=== PATIENT | female | born 1995 | race Caucasian/White ===

== ENCOUNTER 2017-07-23 21:52 | Emergency (ER) | payer OTHER ==
[~2017-07-23] VITALS: Ht 170.2 cm; Wt 69.0 kg
[2017-07-23 21:55] VITALS: Ht 170.2 cm; Wt 69.0 kg
[2017-07-23] MEDS ORDERED: ONDANSETRON INJ 2 MG/ML 2 ML VIAL IV STA (22:13)
[2017-07-23] MEDS ORDERED: SODIUM CHLORIDE 0.9% 1000ML 1,000 ML IV ONE (22:15)
[2017-07-23] MEDS: MoRPHine SULFATE 4 MG/ML 1 ML CARP\\VIAL IV PRN ×2 (22:22→23:18)
[2017-07-23 22:27] LABS: BASO % 0.4 %; BASO ABS # 0.04 K/uL (0-0.2); COMPLETE YES; EOS % 2.1 %; HEMATOCRIT 34.2 % (37-47); IG% 0.2 %; LYMPH % 25.7 %; LYMPH ABS # 2.58 K/uL (1.2-3.4); MEAN CELL VOLUME 91.4 fL (80-100); MEAN CORPUSCULAR HEMOGLOBIN 31.8 pg (25-34); MEAN CORPUSCULAR HGB CONC 34.8 g/dl (32-36); MEAN PLATELET VOLUME 10.6 fL (7.4-10.4); MONO % 6.2 %; NEUT % 65.4 %; PLATELET COUNT 261 K/uL (130-400); RED BLOOD COUNT 3.74 M/uL (4.2-5.4); WHITE BLOOD COUNT 10.04 K/uL (4.8-10.8)
[2017-07-23] MEDS ORDERED: MULT-580 PO (22:37)
[2017-07-23] MEDS ORDERED: HYDR-5688 PO (22:37)
[2017-07-23] MEDS ORDERED: SULF800T23 PO (22:37)
[2017-07-23 22:45] LABS: URINE APPEARANCE CLEAR (CLEAR); URINE BILIRUBIN NEG (NEG); URINE COLOR YELLOW; URINE NITRITE NEG (NEG); URINE SPECIFIC GRAVITY 1.022 (1.000-1.030); UROBILINOGEN POS (NEG); ZZUR CULT IF INDIC CLEAN CATCH NO
[2017-07-23 22:48] LABS: MANUAL MICROSCOPIC REQUIRED? NO; REVIEW REQ? NO
[2017-07-23 22:53] LABS: BUN/CREATININE RATIO 16.2 (10-20); CALCIUM 8.9 mg/dl (8.5-10.1); CREATININE 0.92 mg/dl (0.60-1.20); POTASSIUM 3.5 mmol/L (3.5-5.1)
[2017-07-23 22:56] LABS: ALB/GLOB RATIO 0.9 (0.9-2)
[2017-07-23 23:22] LABS: BENZODIAZEPINE, URINE NEG (NEG); COCAINE,URINE NEG (NEG); PHENCYCLIDINE, URINE NEG (NEG)
[2017-07-24 01:23] VITALS: TEMP 36.8
[2017-07-24 01:46] VITALS: BP 102/68; PULSE 78; O2SAT 98
--- NOTE | 2017-07-24 02:28 | EMERGENCY ROOM VISIT NOTE ---
History First contact with patient: 21:58 Chief Complaint: ABDOMINAL PAIN Stated Complaint: RT SIDE PAIN Nursing Triage Summary: Christianne c/o right mid abdominal pain, seen yesterday in ER states she has a left ovarian cyst. Pain worse . History of Present Illness The patient is a 22 year old female who presents to the Emergency Room with complaints of right-sided mid abdominal pain that began yesterday. The patient lives in [place], and was seen at an emergency department there. Evidently blood work, ultrasound, and noncontrast CT showed an ovarian cyst. The patient states that she traveled to [place] today to be with family, and her pain is now worsening. She is status post cholecystectomy several years ago. She has not had fever, chills, chest pain, chest tightness, or shortness of breath. No vaginal drainage or discharge. She denies chance of . The patient rates her discomfort a 10/10. She has been taking Vicodin that was given to her yesterday, but states this is no longer helping her symptoms. Review of Systems More than 10 systems were reviewed and otherwise negative with the exception of history of present illness. Past Medical/Surgical History Medical Problems: (1) Asthma Family History No pertinent family history Social History Smoking Status: Former Smoker Housing Status: lives with family Current/Historical Medications Scheduled Multiple Vitamins W/ Minerals (Hair/Skin/Nails), 1 TAB PO DAILY Sulfa/Trimethoprim (Bactrim Ds 800MG/160MG), 1 TAB PO BID Scheduled PRN Hydrocodone/Acetaminophen 5MG/325MG ([place] 5MG/325MG), 1 TABLET PO Q6 PRN for Pain Physical Exam Vital Signs Date Time Temp Pulse Resp B/P (MAP) Pulse Ox O2 Delivery O2 Flow Rate FiO2 07/24/17 01:46 78 16 102/68 98 07/24/17 01:23 36.8 83 18 99/62 99 Room Air 07/23/17 23:09 91 16 119/80 100 Room Air 07/23/17 21:55 36.4 97 20 137/85 100 Room Air Physical Exam VITALS: Vitals are noted on the nurse's note and reviewed by myself. Vital signs stable. GENERAL: Well-developed, well-nourished, uncomfortable-appearing female who is cooperative with the examination. HEART: Regular rate and rhythm without murmurs gallops or rubs. LUNGS: Clear to auscultation bilaterally without wheezes, rales or rhonchi. No retractions or accessory muscle use. ABDOMEN: Positive normal bowel sounds x 4. Soft with right-sided abdominal tenderness on palpation just right of the umbilicus. The patient is guarding in this area. She does not have distinct lower abdominal or upper abdominal tenderness. No CVA tenderness. MUSCULOSKELETAL: No muscle atrophy, erythema, or edema noted. Full range of motion without joint tenderness in all extremities. Medical Decision & Procedures ER Provider Diagnostic Interpretation: Preliminary Findings Only See Final Report For Complete Findings CT ABDOMEN & PELVIS With Contrast: Unremarkable appendix. 3.5 cm left ovarian cyst. Trace fluid in pelvis. Cholecystectomy. Preliminary Findings Only See Final Report For Complete Findings US PELVIC/ENDOVAG: Assuming a negative test. Correlate. No complex adnexal lesion or torsion. 2.9 cm left ovarian cyst. Uterus is unremarkable. Trace fluid in the pelvis. Laboratory Results 07/23/17 22:15 Red Blood Count 3.74, Mean Corpuscular Volume 91.4, Mean Corpuscular Hemoglobin 31.8, Mean Corpuscular Hemoglobin Concent 34.8, Mean Platelet Volume 10.6, Neutrophils (%) (Auto) 65.4, Lymphocytes (%) (Auto) 25.7, Monocytes (%) (Auto) 6.2, Eosinophils (%) (Auto) 2.1, Basophils (%) (Auto) 0.4, Neutrophils # (Auto) 6.57, Lymphocytes # (Auto) 2.58, Monocytes # (Auto) 0.62, Eosinophils # (Auto) 0.21, Basophils # (Auto) 0.04 07/23/17 22:15 Test 07/23/17 22:15 07/23/17 22:30 White Blood Count 10.04 K/uL (4.8-10.8) Red Blood Count 3.74 M/uL (4.2-5.4) Hemoglobin 11.9 g/dL (12.0-16.0) Hematocrit 34.2 % (37-47) Mean Corpuscular Volume 91.4 fL (80-100) Mean Corpuscular Hemoglobin 31.8 pg (25-34) Mean Corpuscular Hemoglobin Concent 34.8 g/dl (32-36) Platelet Count 261 K/uL (130-400) Mean Platelet Volume 10.6 fL (7.4-10.4) Neutrophils (%) (Auto) 65.4 % Lymphocytes (%) (Auto) 25.7 % Monocytes (%) (Auto) 6.2 % Eosinophils (%) (Auto) 2.1 % Basophils (%) (Auto) 0.4 % Neutrophils # (Auto) 6.57 K/uL (1.4-6.5) Lymphocytes # (Auto) 2.58 K/uL (1.2-3.4) Monocytes # (Auto) 0.62 K/uL (0.11-0.59) Eosinophils # (Auto) 0.21 K/uL (0-0.5) Basophils # (Auto) 0.04 K/uL (0-0.2) RDW Standard Deviation 41.0 fL (36.4-46.3) RDW Coefficient of Variation 12.2 % (11.5-14.5) Immature Granulocyte % (Auto) 0.2 % Immature Granulocyte # (Auto) 0.02 K/uL (0.00-0.02) Anion Gap 8.0 mmol/L (3-11) Est Creatinine Clear Calc Drug Dose 91.7 ml/min Estimated GFR () 101.0 Estimated GFR (Non- 87.2 BUN/Creatinine Ratio 16.2 (10-20) Calcium Level 8.9 mg/dl (8.5-10.1) Total Bilirubin 0.2 mg/dl (0.2-1) Aspartate Amino Transf (AST/SGOT) 12 U/L (15-37) Alanine Aminotransferase (ALT/SGPT) 19 U/L (12-78) Alkaline Phosphatase 57 U/L (45-117) Total Protein 7.4 gm/dl (6.4-8.2) Albumin 3.5 gm/dl (3.4-5.0) Globulin 3.9 gm/dl (2.5-4.0) Albumin/Globulin Ratio 0.9 (0.9-2) Lipase 72 U/L (73-393) Urine Color YELLOW Urine Appearance CLEAR (CLEAR) Urine pH 8.0 (4.5-7.5) Urine Specific [place] 1.022 (1.000-1.030) Urine Protein NEG (NEG) Urine Glucose (UA) NEG (NEG) Urine Ketones NEG (NEG) Urine Occult Blood NEG (NEG) Urine Nitrite NEG (NEG) Urine Bilirubin NEG (NEG) Urine Urobilinogen POS (NEG) Urine Leukocyte Esterase NEG (NEG) Urine Test NEG (NEG) Urine Opiates Screen POS (NEG) Urine Methadone, Qualitative NEG (NEG) Urine Barbiturates NEG (NEG) Urine Phencyclidine (PCP) Level NEG (NEG) Ur Amphetamine/Methamphetamine NEG (NEG) MDMA (Ecstasy) Screen NEG (NEG) Urine Benzodiazepines Screen NEG (NEG) Urine Cocaine Metabolite NEG (NEG) Urine Marijuana (THC) NEG (NEG) Medications Administered Medications (Trade) Dose Ordered Sig/Jo-Ann Route Start Time Stop Time Status Last Admin Dose Admin Morphine Sulfate (MoRPHine SULFATE INJ) 4 mg Q1H PRN IV 07/23/17 22:15 07/24/17 02:06 DC 07/23/17 23:18 4 MG Sodium Chloride 1,000 ml @ 999 mls/hr Q1H1M ONCE IV 07/23/17 22:15 07/23/17 23:15 DC 07/23/17 22:23 999 MLS/HR Ondansetron HCl (Zofran Inj) 4 mg NOW STAT IV 07/23/17 22:13 07/23/17 22:16 DC 07/23/17 22:22 4 MG ED Course Physical exam and history were performed. Nursing notes, EMR, and Medication List were personally reviewed. Patient appears to have right-sided abdominal pain for the past 2 days. The patient was seen out of state yesterday, and states her pain is worse tonight. IV access was established and labs were obtained. The patient was hydrated with normal saline and given IV morphine and IV Zofran for comfort. Ultrasound and CT scan were performed. The patient's blood work is as above and was reviewed. Patient does not have a significantly elevated white blood cell count, gross anemia, bandemia, or significant electrolyte imbalance. Transaminases are nondiagnostic. Urine was negative for . Urine is also without evidence of infection. Drug of abuse screen was positive for narcotics, however the patient is actively taking Vicodin, and this was expected. Her ultrasound does show a left sided ovarian cyst. CT scan with IV and oral contrast confirms the left-sided cyst, but does not reveal additional intra-abdominal process. On reexamination the patient continued to complain of right-sided abdominal pain. He does not have a fever at this time, and her evaluation to this point is benign. I explained the importance of performing a pelvic exam to further identify etiologies of her pain, however the patient refused pelvic exam. Overall she is stable for discharge home. She does have Vicodin from yesterday that she is to continue using. She is returning home to [place] in 48 hours, and likely needs to follow with [facility] or [facility]. She is to contact them in the morning to help facilitate care. The patient was otherwise invited back to the ER with any new, worsening, or concerning symptoms. The chart was completed utilizing [employer] Speech Voice Recognition Software. Grammatical errors, random word insertions, pronoun errors, and incomplete sentences are an occasional consequence of this system due to software limitations, ambient noise, and hardware issues. Any formal questions or concerns about the content, text, or information contained within the body of this dictation should be directly addressed to the provider for clarification. . Medical Decision Differential diagnosis: Etiologies such as appendicitis, constipation, malingering, diverticulitis, PUD , biliary pathology, UTI, pancreatitis, obstruction, mesenteric ischemia, aortic pathology, infections, inflammatory bowel disease, renal colic, as well as others were entertained. Impression Primary Impression: Right sided abdominal pain Departure Information Dispostion Home / Self-Care Condition GOOD Forms HOME CARE DOCUMENTATION FORM, IMPORTANT VISIT INFORMATION Patient Instructions My [facility] Additional Instructions You were seen and evaluated today on an emergency basis only. This is not a substitute for, or an effort to provide, complete comprehensive medical care. It is not possible to recognize and treat all injuries or illnesses in a single emergency department visit. For this reason it is recommended that you followup with your primary care physician/[facility] upon returning home for recheck of your condition. Take 600 mg ibuprofen (Advil) every 6 hours. Continue your [place] as previously prescribed You are welcome to return to the emergency department anytime with new, worsening, or concerning symptoms.
--- NOTE | 2017-07-24 07:16 | DIAGNOSTIC IMAGING REPORT ---
ABDOMEN AND PELVIS CT WITH IV AND ORAL CONTRAST CT DOSE: 312.66 mGy.cm HISTORY: Right side mid abd pain. No Gallbladder TECHNIQUE: Multiaxial CT images of the abdomen and pelvis were performed following the use of intravenous and oral contrast. A dose lowering technique was utilized adhering to the principles of ALARA. COMPARISON STUDY: None. FINDINGS: The lung bases are clear. No bowel wall thickening or obstruction. The liver, spleen, adrenal glands, pancreas, and kidneys are unremarkable. No hydronephrosis. Normal bladder. The uterus and right ovary are unremarkable. There is a 3.2 cm cyst within the left ovary. Trace pelvic free fluid. No retroperitoneal lymphadenopathy. No bowel wall thickening or obstruction. Normal appendix. IMPRESSION: 1. No bowel wall thickening or obstruction. 2. Normal appendix. 3. Trace pelvic free fluid. 4. A 3.2 cm left ovarian cyst. 5. Cholecystectomy. Electronically signed by: Ugo Wright M.D. 07/24/2017 7:15 AM Dictated Date/Time: 07/24/2017 7:12 AM
--- NOTE | 2017-07-24 07:31 | DIAGNOSTIC IMAGING REPORT ---
PELVIC ULTRASOUND, TRANSABDOMINAL AND TRANSVAGINAL HISTORY: Right-sided pelvic pain. COMPARISON: None. FINDINGS: Uterus: Unremarkable. Endometrial stripe: Right ovary: Normal in size and demonstrates normal color flow. Left ovary: Normal in size and demonstrates normal color flow. A 2.9 cm cyst. This may contain internal echoes or could represent artifact given the suboptimal evaluation due to the position of the ovary. Miscellaneous:Trace pelvic free fluid. IMPRESSION: 1. Trace pelvic free fluid. 2. A 2.9 cm left ovarian cyst which may contain internal echoes. However, this may represent artifact given the suboptimal visualization. Electronically signed by: Ugo Wright M.D. 07/24/2017 7:30 AM Dictated Date/Time: 07/24/2017 7:28 AM
[2017-07-26 16:18] LABS: COD UR NEGATIVE NG/ML (CUTOFF=50); HYDROCOD UR 464 NG/ML (CUTOFF=50); HYDROMOR UR 133 NG/ML (CUTOFF=50); MORPHINE UR 112 NG/ML (CUTOFF=50); NORHYDROCODONE CONF UR 2030 NG/ML (CUTOFF=50); OXYMORPH UR 4990 NG/ML (CUTOFF=50)
== END 2017-07-24 01:48 | disposition home or self-care (01) ==
LOC: C.EDB 21:55
DX: R10.9 Unspecified abdominal pain (principal); J45.909 Unspecified asthma, uncomplicated; Z87.891 Personal history of nicotine dependence

== ENCOUNTER 2021-02-22 20:41 | Inpatient (IN) ==
[2021-02-22] MEDS ORDERED: PENICILLIN G POTASSIUM 3 MU in DEXTROSE 5% 100 ML IV PRN (23:00)
[2021-02-22] MEDS ORDERED: OXYTOCIN 30 UNITS/500 ML BAG IV PRN (23:00)
[2021-02-22] MEDS ORDERED: PENICILLIN G POTASSIUM 6 MU in DEXTROSE 5% 250 ML IV STA (23:05)
[2021-02-22] MEDS: LACTATED RINGER'S 1,000 ML IV PRN (23:06)
[2021-02-22] MEDS ORDERED: ePHEDrine sulfate 50 MG/ML AMP ONE (23:08)
[2021-02-22] MEDS ORDERED: fentaNYL 2MCG/ML ROPIVACAINE 1.25MG/ML 100 ML BAG EPI ONE (23:08)
[2021-02-22] MEDS ORDERED: SODIUM CHLORIDE 0.9% INJ 10 ML VIAL ONE (23:08)
[2021-02-22] MEDS ORDERED: BUPIVACAINE 0.25% 30 ML VIAL ONE (23:08)
[2021-02-22] MEDS ORDERED: fentaNYL citrate 100 MCG/2 ML VIAL ONE (23:08)
[2021-02-22 23:22] LABS: Hematocrit (blood only) 35.5 % (37-47); Hemoglobin 12.2 g/dL (12.0-16.0); Mean Corpuscular Hemoglobin 31.9 pg (25-34); Mean Corpuscular Volume 92.7 fL (80-100); Mean Platelet Volume 11.4 fL (7.4-10.4); Platelet Count 247 K/uL (130-400); RDW Coefficient of Variation 12.8 % (11.5-14.5); RDW Standard Deviation 43.7 fL (36.4-46.3); Red Blood Count 3.83 M/uL (4.2-5.4); White Blood Count 11.83 K/uL (4.8-10.8)
[2021-02-22 23:24] LABS: Mean Corpuscular Hgb Conc 34.4 g/dL (32-36)
[2021-02-22] MEDS ORDERED: ePHEDrine sulfate 50 MG/ML AMP IV PRN (23:45)
[2021-02-22] MEDS ORDERED: NALOXONE HCL 0.4 MG/1 ML VIAL/CARP IV PRN (23:45)
[2021-02-22] MEDS ORDERED: NALOXONE HCL 1 MG in SODIUM CHLORIDE 0.9% 1000ML 1,000 ML IV PRN (23:45)
[2021-02-22] MEDS ORDERED: ONDANSETRON INJ 2 MG/ML 2 ML VIAL IV PRN (23:45)
[2021-02-22] MEDS ORDERED: NALBUPHINE HCL INJ 10 MG/ML AMP IV PRN (23:45)
[2021-02-22] MEDS ORDERED: fentaNYL 2MCG/ML ROPIVACAINE 1.25MG/ML 100 ML BAG EPI PRN (23:45)
[2021-02-22] MEDS ORDERED: diphenhydrAMINE 50 MG/ML VIAL IV PRN (23:45)
--- NOTE | 2021-02-22 23:47 | Anesthesiology Consultation ---
Date of Service February 22, 2021 Assessment & Plan Chart Review Chart Review: Patient NOT seen in Pre Admission Testing and Acceptable Risk for Labor Epidural Consults Requested none ASA ASA2 Proposed Anesthesia Anesthesia Type: Labor Epidural and CSE Risk / Benefits Reviewed With: PT / POA / Parent / Guardian, Accepts Plan and Informed Consent Obtained History Height/Weight Height: 5 ft 7 in Weight: 71.668 kg Allergies Allergy/AdvReac Type Severity Reaction Status Date / Time acetaminophen Allergy Mild Itching Verified 01/19/21 14:18 Medications Home Medications Medication Instructions Recorded Confirmed Last Taken vits no.124-ferrous fum 1 tab PO DAILY 02/22/21 02/22/21 02/22/21 08:00 27 mg iron-folic acid 800 mcg tablet ( Vitamin) Active Medications Generic Name Dose Route Start Last Admin Trade Name Freq PRN Reason Stop Dose Admin Penicillin G Potassium 6 mu/ 262 mls @ 262 mls/hr 02/22/21 23:05 02/22/21 23:36 Dextrose IV 02/23/21 00:04 262 mls/hr NOW STA Administration Lactated Ringer's 1,000 mls @ 125 mls/hr 02/22/21 23:00 02/22/21 23:06 Lr IV 02/24/21 22:59 999 mls/hr .Q8H PRN Administration L&D Protocol Protocol NPO Date Last Intake of Fluids: 02/22/21 Time Last Intake of Fluids: 22:00 Date Last Intake of Solids: 02/22/21 Time Last Intake of Solids: 18:00 Past Medical History Medical History Anemia Asthma Depression Smoker Exercise / Class Metabolic Activity II 4-5 Yardwork/Stairs/Walk up hill Past Surgical History Surgical History (Updated 02/22/21 @ 21:39 by Carl Badillo RN) History of cholecystectomy Past Anesthesia History No Hx of Anesthesia Complications and No Family Hx of Anesthesia Complications History of PONV No Hx of PONV and No Hx of Motion Sickness Social History Smoking Status: Current every day smoker tobacco type: cigarettes Smoking cigarettes per day: 20 Do You Dip or Chew Tobacco: No Hx Alcohol Use: No Hx Substance Use: No substance use type: does not use Review of Systems no chest pain or sob Physical Exam Vital Signs Last Vital Signs Temp 37.0 C 02/22/21 20:58 Pulse 78 02/22/21 23:42 Resp 18 02/22/21 20:58 BP 136/83 02/22/21 20:58 Pulse Ox 90 02/22/21 23:42 ENMT Mouth: no TMJ abnormality Thyromental Distance: > or= 3.5 Finger Breadths Mallampati Class: II face piercing Neck normal visual inspection Respiratory normal respiratory effort Auscultation: lungs clear to auscultation bilaterally Cardiovascular Rate/Rhythm: regular rate and regular rhythm Musculoskeletal Spine: normal cervical ROM Neurologic moves all extremities Psychiatric Orientation: alert and oriented x 3 Testing Laboratory Results 02/22/21 23:12
[2021-02-23] MEDS: LACTATED RINGER'S 1,000 ML IV PRN (00:11)
[2021-02-23] MEDS ORDERED: LIDOCAINE 1% LOCAL 20 ML VIAL ONE (01:15)
[2021-02-23] MEDS ORDERED: bisacodyL 10 MG SUPP PR PRN (01:31)
[2021-02-23] MEDS ORDERED: MEASLES, MUMPS & RUBELLA VIRUS VIAL SQ ONE (01:31)
[2021-02-23] MEDS ORDERED: SUPERCREAM 0.870% 15 GM JAR EXT PRN (01:31)
[2021-02-23] MEDS ORDERED: HYDROCORTISONE ACETATE 25 MG SUPP PR PRN (01:31)
[2021-02-23] MEDS ORDERED: DIPHTHERIA/TETANUS/PERTUSSIS 0.5 ML SYR/VIAL IM ONE (01:31)
[2021-02-23] MEDS ORDERED: OXYTOCIN 30 UNITS/500 ML BAG IV PRN (01:31)
[2021-02-23] MEDS ORDERED: miSOPROStoL 200 MCG TAB PR ONE (01:31)
[2021-02-23] MEDS ORDERED: BENZOCAINE 20% AER SPR 82.5 GM CAN EXT PRN (01:31)
[2021-02-23 01:55] LABS: Base Excess Cord Arterial Bld -1.8 mEq/L (-9-1.8); Base Excess Cord Venous Blood -1.2 mEq/L (-7.7-1.9); CO2 Cord Arterial Blood 61 mmHg (39.1-73.5); Cord Venous Blood HCO3 23 mmol/L (18.4-26.8); Cord Venous Blood PCO2 39 mmHg (30.4-57.2); Cord Venous Blood PO2 41 mmHg (14.1-43.3); HCO3 Cord Arterial Blood 27 mmol/L (19.7-28.5); PO2 Cord Arterial Blood 11 mmHg (4.1-31.7); pH Cord Arterial Blood 7.26 (7.1-7.38)
[2021-02-23] MEDS ORDERED: METHYLERGONOVINE MALEATE 0.2 MG/ML AMP ONE (02:03)
[2021-02-23 02:11] LABS: Oxygen Sat Cord Arterial Blood < 60.0 % (<60)
[2021-02-23] MEDS: IBUPROFEN 600 MG TAB PO PRN ×4 (05:39→21:21)
--- NOTE | 2021-02-23 08:14 | Obstetrical Progress Note ---
Date of Service February 23, 2021 Subjective Ambulation: ambulating normally Voiding: no voiding problems Passing Gas:: Yes Diet Tolerance:: regular diet Current Pain Level(1-10): 0 doing well. plans for discharge tomorrow AM Review of Systems All systems reviewed & are unremarkable except as noted in HPI & below Physical Exam Constitutional WD/WN, vitals as above comfortable Genitourinary abdomen is soft and non-tender. No edema. neg Sandy's. Results & Data ([facility]) Vital Signs (Past 12 Hours) Vital Signs Temp Pulse Pulse Resp BP BP Pulse Ox 02/23/21 07:40 37.3 C 74 18 131/85 95 02/23/21 05:35 37.0 C 81 18 129/83 02/23/21 05:11 83 128/69 02/23/21 04:56 88 124/69 02/23/21 04:41 88 129/75 02/23/21 04:26 78 127/71 02/23/21 04:11 78 125/70 02/23/21 03:56 80 120/68 02/23/21 03:41 78 18 127/73 02/23/21 03:26 81 123/70 02/23/21 03:11 79 18 121/67 02/23/21 02:56 88 135/80 02/23/21 02:41 75 141/86 H 02/23/21 02:26 73 18 141/84 H 02/23/21 02:11 78 18 130/79 02/23/21 01:56 82 18 128/70 02/23/21 01:43 85 88 L 02/23/21 01:40 80 18 119/68 91 02/23/21 01:38 75 83 L 02/23/21 01:34 79 100 02/23/21 01:30 90 87 L 02/23/21 01:29 93 H 99 02/23/21 01:27 81 114/65 02/23/21 01:24 81 99 02/23/21 01:19 79 99 02/23/21 01:14 89 100 02/23/21 01:12 85 124/77 02/23/21 01:10 105 H 86 L 02/23/21 01:09 105 H 90 02/23/21 01:04 94 H 87 L 02/23/21 00:59 86 95 02/23/21 00:58 88 83 L 02/23/21 00:54 84 85 L 02/23/21 00:52 74 85 L 02/23/21 00:49 79 87 L 02/23/21 00:45 75 18 129/85 80 L 02/23/21 00:44 78 100 02/23/21 00:39 84 81 L 02/23/21 00:34 72 86 L 02/23/21 00:33 72 92 02/23/21 00:30 18 02/23/21 00:28 74 91 02/23/21 00:26 80 131/68 02/23/21 00:25 18 02/23/21 00:24 76 83 L 02/23/21 00:22 76 100 02/23/21 00:20 18 02/23/21 00:19 76 85 L 02/23/21 00:17 75 99 02/23/21 00:15 18 02/23/21 00:12 78 97 02/23/21 00:11 77 116/70 02/23/21 00:10 18 02/23/21 00:09 83 118/73 02/23/21 00:07 83 117/68 99 02/23/21 00:05 77 18 122/67 02/23/21 00:03 80 119/72 02/23/21 00:02 80 100 02/23/21 00:01 82 128/80 02/23/21 00:00 18 02/22/21 23:59 78 127/78 02/22/21 23:58 86 84 L 02/22/21 23:57 85 137/86 96 02/22/21 23:55 91 H 137/83 02/22/21 23:52 98 H 99 02/22/21 23:48 90 83 L 02/22/21 23:47 89 96 02/22/21 23:42 78 90 02/22/21 23:37 80 89 L 02/22/21 23:32 94 H 93 02/22/21 23:27 88 85 L 02/22/21 23:22 82 99 02/22/21 20:58 37.0 C 18 L 18 136/83 02/22/21 20:55 98 H 136/83 Laboratory Results 02/22/21 02/22/21 02/22/21 22:57 22:57 23:12 WBC 11.83 H RBC 3.83 L Hgb 12.2 Hct 35.5 L MCV 92.7 MCH 31.9 MCHC 34.4 RDW Std Deviation 43.7 RDW Coeff of Lashawn 12.8 Plt Count 247 MPV 11.4 H Cord ABG pH Cord ABG pCO2 Cord ABG pO2 Cord ABG HCO3 Cord ABG Base Excess Cord ABG O2 Sat Cord VBG pH Cord VBG pCO2 Cord VBG pO2 Cord VBG HCO3 Cord VBG Base Excess Cord VBG O2 Sat Barometric Pressure Blood Gas Comments COVID-19 Eval Order Covid19 [facility] SARS-CoV-2, RNA, NAAT NEGATIVE 02/23/21 02/23/21 01:08 01:08 WBC RBC Hgb Hct MCV MCH MCHC RDW Std Deviation RDW Coeff of Lashawn Plt Count MPV Cord ABG pH 7.26 Cord ABG pCO2 61 Cord ABG pO2 11 Cord ABG HCO3 27 Cord ABG Base Excess -1.8 Cord ABG O2 Sat < 60.0 Cord VBG pH 7.40 Cord VBG pCO2 39 Cord VBG pO2 41 Cord VBG HCO3 23 Cord VBG Base Excess -1.2 Cord VBG O2 Sat 84.0 H Barometric Pressure 730.2 729.5 Blood Gas Comments [facility] COVID-19 Eval Order SARS-CoV-2, RNA, NAAT
[2021-02-23] MEDS: PRENATAL VITAMIN 1 TAB PO SCH (08:35)
[2021-02-23] MEDS: DOCUSATE SODIUM 100 MG CAP PO SCH ×2 (08:35→21:21)
[2021-02-23] MEDS: ACETAMINOPHEN 325 MG TAB PO PRN ×2 (08:35→16:22)
--- NOTE | 2021-02-23 11:42 | Anesthesia Procedure Note ---
Date of Service February 23, 2021 Anesthesia Post Epidural Note Vital Signs Vital Signs: Temp Pulse Resp BP Pulse Ox 37.3 C 74 18 131/85 95 02/23/21 07:40 02/23/21 07:40 02/23/21 07:40 02/23/21 07:40 02/23/21 07:40 Pain Intensity Abdomen: Pain Intensity: 7 Notes Mental Status: alert / awake / arousable and participated in evaluation Nausea / Vomiting: adequately controlled Pain: adequately controlled Airway Patency, RR, SpO2: stable & adequate BP & HR: stable & adequate Hydration State: stable & adequate Neuraxial Anesthesia: was administered and sensory block resolved Anesthetic Complications: no major complications apparent and Pt Satisfied with anesthetic care Epidural: Removed without complications and With tip intact Notes: The patient's epidural was removed by the nurse because it was stuck to the pump tubing. There were no problems pulling it out as per the nurse.
--- NOTE | 2021-02-23 12:59 | Delivery Summary ---
DATE OF DELIVERY: The patient delivered a live in left occiput anterior presentation. There was a tight nuchal cord, which was clamped and reduced. was delivered and placed on mother's abdomen. Infant's weight and Apgars in the pediatric record. Cord blood was obtained. Placenta was spontaneously deli kay. Inspection of the placenta shows a grossly normal-looking placenta. Inspection of the perineum shows bilateral periurethral tear, which was repaired with 3-0 Vicryl. Re ctal exam showed good sphincter tone. All instruments were removed from the vagina and accounted for x2 including sponges, needles, and ret ractors. Estimated blood loss was 450 mL. Job ID: [id number]
[2021-02-23] MEDS ORDERED: NICOTINE 14 MG/24 HR PATCH TD SCH (13:15)
[2021-02-24] MEDS: IBUPROFEN 600 MG TAB PO PRN (06:01)
[2021-02-24 06:29] LABS: Hematocrit (blood only) 32.8 % (37-47); Hemoglobin 10.9 g/dL (12.0-16.0); Mean Corpuscular Hemoglobin 30.8 pg (25-34); Mean Corpuscular Hgb Conc 33.2 g/dL (32-36); Mean Corpuscular Volume 92.7 fL (80-100); Mean Platelet Volume 11.6 fL (7.4-10.4); Platelet Count 216 K/uL (130-400); RDW Coefficient of Variation 12.9 % (11.5-14.5); RDW Standard Deviation 43.6 fL (36.4-46.3); Red Blood Count 3.54 M/uL (4.2-5.4); White Blood Count 12.71 K/uL (4.8-10.8)
--- NOTE | 2021-02-24 07:40 | Obstetrical Progress Note ---
Date of Service February 24, 2021 Assessment & Plan Admission and Anticipated Discharge Date Admission Date: February 22, 2021 Subjective Patient is seen and examined. She feels well, no complaints. Desires d/c this morning Ambulating without dizziness Voiding without difficulty Tolerating regular diet with out N&V Bleeding is minimal No fever/ chills/ CP/ SOB/ N&V/ Leg pain Breast feeding without problems Vital Signs Temp Pulse Resp BP 02/23/21 23:15 36.4 C L 86 18 106/72 02/23/21 20:09 36.4 C L 74 18 117/62 Lab Results 02/22/21 02/22/21 02/22/21 Range/Units 22:57 22:57 23:12 WBC 11.83 H (4.8-10.8) K/uL RBC 3.83 L (4.2-5.4) M/uL Hgb 12.2 (12.0-16.0) g/dL Hct 35.5 L (37-47) % MCV 92.7 (80-100) fL MCH 31.9 (25-34) pg MCHC 34.4 (32-36) g/dL RDW Std Deviation 43.7 (36.4-46.3) fL RDW Coeff of Lashawn 12.8 (11.5-14.5) % Plt Count 247 (130-400) K/uL MPV 11.4 H (7.4-10.4) fL Cord ABG pH (7.1-7.38) Cord ABG pCO2 (39.1-73.5) mmHg Cord ABG pO2 (4.1-31.7) mmHg Cord ABG HCO3 (19.7-28.5) mmol/L Cord ABG Base Excess (-9-1.8) mEq/L Cord ABG O2 Sat (<60) % Cord VBG pH (7.20-7.44) Cord VBG pCO2 (30.4-57.2) mmHg Cord VBG pO2 (14.1-43.3) mmHg Cord VBG HCO3 (18.4-26.8) mmol/L Cord VBG Base Excess (-7.7-1.9) mEq/L Cord VBG O2 Sat (<68) % Barometric Pressure mm/Hg Blood Gas Comments COVID-19 Eval Order Covid19 [facility] SARS-CoV-2, RNA, NAAT NEGATIVE (NEGATIVE) 02/23/21 02/23/21 02/24/21 Range/Units 01:08 01:08 06:02 WBC 12.71 H (4.8-10.8) K/uL RBC 3.54 L (4.2-5.4) M/uL Hgb 10.9 L (12.0-16.0) g/dL Hct 32.8 L (37-47) % MCV 92.7 (80-100) fL MCH 30.8 (25-34) pg MCHC 33.2 (32-36) g/dL RDW Std Deviation 43.6 (36.4-46.3) fL RDW Coeff of Lashawn 12.9 (11.5-14.5) % Plt Count 216 (130-400) K/uL MPV 11.6 H (7.4-10.4) fL Cord ABG pH 7.26 (7.1-7.38) Cord ABG pCO2 61 (39.1-73.5) mmHg Cord ABG pO2 11 (4.1-31.7) mmHg Cord ABG HCO3 27 (19.7-28.5) mmol/L Cord ABG Base Excess -1.8 (-9-1.8) mEq/L Cord ABG O2 Sat < 60.0 (<60) % Cord VBG pH 7.40 (7.20-7.44) Cord VBG pCO2 39 (30.4-57.2) mmHg Cord VBG pO2 41 (14.1-43.3) mmHg Cord VBG HCO3 23 (18.4-26.8) mmol/L Cord VBG Base Excess -1.2 (-7.7-1.9) mEq/L Cord VBG O2 Sat 84.0 H (<68) % Barometric Pressure 730.2 729.5 mm/Hg Blood Gas Comments [facility] COVID-19 Eval Order SARS-CoV-2, RNA, NAAT (NEGATIVE) PE: General: Alert, orientedx3, NAD Abd: soft, NT, fundus firm, below Umbilicus Perineum intact, Lochia rubra minimal Ext; NT, no edema AP: 26 yo s/p , ppd# 1 VSS Afebrile doing well Continue routine care All questions were answered Discussed when to call D/C home , f/u in office Results & Data ([facility]) Vital Signs (Past 12 Hours) Vital Signs Temp Pulse Resp BP 02/23/21 23:15 36.4 C L 86 18 106/72 02/23/21 20:09 36.4 C L 74 18 117/62
[2021-02-24] MEDS: DOCUSATE SODIUM 100 MG CAP PO SCH (07:46)
[2021-02-24] MEDS: PRENATAL VITAMIN 1 TAB PO SCH (07:46)
[2021-02-24] MEDS ORDERED: bisacodyL 5 MG TABEC PO SCH (20:00)
== END 2021-02-24 11:06 | disposition home or self-care (01) | DRG 807 ==
LOC: OPB 20:41 → 4S1 20:45 → 4S2 02-23 05:46

== ENCOUNTER 2022-05-30 13:13 | Inpatient (IN) ==
[2022-05-30] MEDS ORDERED: OXYTOCIN 10 UNITS/ML VIAL ONE (13:22)
[2022-05-30] MEDS ORDERED: LIDOCAINE 1% LOCAL 20 ML VIAL INFIL PRN (13:30)
[2022-05-30] MEDS ORDERED: LACTATED RINGER'S 1,000 ML IV PRN (13:30)
[2022-05-30] MEDS ORDERED: OXYTOCIN 30 UNITS/500 ML BAG IV PRN ×2 (13:30→13:43)
[2022-05-30] MEDS ORDERED: BENZOCAINE 20% AER SPR 82.5 GM CAN EXT PRN (13:43)
[2022-05-30] MEDS ORDERED: bisacodyL 10 MG SUPP PR PRN (13:43)
[2022-05-30] MEDS ORDERED: DIPHTHERIA/TETANUS/PERTUSSIS 0.5 ML SYR/VIAL IM ONE (13:43)
[2022-05-30] MEDS ORDERED: HYDROCORTISONE ACETATE 25 MG SUPP PR PRN (13:43)
--- NOTE | 2022-05-30 13:48 | History & Physical Report ---
Date of Service May 30, 2022 Assessment & Plan (1) Precipitous delivery, delivered (current hospitalization): Plan: Routine post- Admission and Anticipated Discharge Date Admission Date: May 30, 2022 History of Present Illness Chief Complaint: onset of labor with precipitous delivery Primary Care Provider: SACHIN PCP Justin Mcnair [id number] at 38+ weeks presents to L&D fully dilated and ready to deliver. he delivered precipitously a live female with Apgars 8/9 weight pending. No tears. Placenta delivered spontaneously and intact. Allergies Allergy/AdvReac Type Severity Reaction Status Date / Time acetaminophen Allergy Mild Nausea Verified 05/30/22 13:29 Home Medications Medication Instructions Recorded Confirmed Type vits no.124-ferrous fum 1 tab PO DAILY 02/22/21 02/22/21 History 27 mg iron-folic acid 800 mcg tablet ( Vitamin) vits no.124-ferrous fum 1 tab PO DAILY@08 #90 tabs 02/24/21 05/30/22 Rx 27 mg iron-folic acid 800 mcg tablet ( Vitamin) Patient History Medical History Anemia Asthma Depression Surgical History History of cholecystectomy Social History Smoking Status: Current every day smoker Tobacco Type: Cigarettes Cigarettes Per Day: 10; Second Hand Exposure: No; Hx Alcohol Use: No Hx Substance Use: No Preferred Language: Honduran Communication Ability: Effective Data Programmer Required: No Beliefs That Will Affect Care: None marital status: Single Current Living Situation: Spouse Other Information That Helps Us Care for You: No Feels Safe at Home: Yes Safety Concerns: Feels Safe At This Time Assistive Devices: None OB History x2 DIRECTOR TALENT ACQUISITION History neg Review of Systems All systems reviewed & are unremarkable except as noted in HPI & below Physical Exam Constitutional: WD/WN, vitals as above Eyes: PERRL, conjunctivae normal, anicteric sclerae Respiratory: normal respiratory effort, lungs clear to auscultation Musculoskeletal: Extremities: extremities normal to inspection Skin: no rashes, warm and dry Neurologic: patellar DTR's 2+ bilat, sensation intact Psychiatric: A+Ox3, euthymic affect Results & Data ([facility]) Vital Signs (Past 12 Hours) Vital Signs Temp Pulse Resp BP 05/30/22 13:26 36.4 C L 20 05/30/22 13:28 98 H 132/82 05/30/22 13:26 104 H 137/113 H Code Status & VTE Plan VTE Prophylaxis Plan VTE Prophylaxis will be ordered: No
[2022-05-30] MEDS: IBUPROFEN 600 MG TAB PO PRN ×2 (15:10→20:29)
[2022-05-30] MEDS: ACETAMINOPHEN 325 MG TAB PO PRN (16:06)
--- NOTE | 2022-05-30 16:31 | Delivery Summary ---
Vaginal Delivery Summary Date of Service May 30, 2022 Vaginal Delivery Summary Patient is a 27-year-old 3 para 2-0-0-2 female who is not a patient of our practice but arrived in labor and delivery fully dilated. Her established provider was not in-house at the time. Shortly after arrival, she had a strong urge to push & membranes ruptured spontaneously for moderate meconium stained fluid. She pushed effectively over intact perineum for delivery of a viable female infant. After the head was delivered, the rest of the followed easily. The cord was noted to be quite short, and was clamped and cut shortly after delivery to allow for the infant to be placed on the mother's abdomen for further attention and drying. The infant was vigorous and crying and moving all 4 limbs. The placenta was then expressed intact with a three-vessel cord after cord blood was obtained. Perineum was inspected and noted to be intact except for a small abrasion of the left labia minora. bleeding was controlled with IM Pitocin and fundal massage. Estimated blood loss 200 cc. Mother and were doing well after delivery. [facility] Vaginal Delivery Charge Delivery Type Details: [facility]
[2022-05-30] MEDS ORDERED: DOCUSATE SODIUM 100 MG CAP PO ONE (19:38)
[2022-05-30] MEDS: DOCUSATE SODIUM 100 MG CAP PO SCH (21:37)
[2022-05-31 07:14] LABS: Hematocrit (blood only) 30.5 % (34.1-44.9); Hemoglobin 10.5 g/dl (12.0-16.0); Mean Corpuscular Hemoglobin 32.2 pg (25.0-34.0); Mean Corpuscular Hgb Conc 34.4 g/dL (32.0-36.0); Mean Corpuscular Volume 93.6 fL (80.0-100.0); Mean Platelet Volume 11.4 fL (9.4-12.3); Platelet Count 223 K/uL (130-400); RDW Coefficient of Variation 12.7 % (11.5-14.5); RDW Standard Deviation 43.6 fL (36.4-46.3); Red Blood Count 3.26 M/uL (3.93-5.22); White Blood Count 9.31 K/ul (4.8-10.8)
--- NOTE | 2022-05-31 07:47 | Obstetrical Progress Note ---
Date of Service May 31, 2022 Assessment & Plan Admission and Anticipated Discharge Date Admission Date: May 30, 2022 Subjective Patient is seen and examined. She feels well, no complaints. Ambulating without dizziness Voiding without difficulty Tolerating regular diet with out N&V Bleeding is minimal No fever/ chills/ CP/ SOB/ N&V/ Leg pain Bottle feeding without problems Vital Signs Temp Pulse Resp BP Pulse Ox O2 Del Method 05/31/22 07:35 37.1 C 98 H 16 102/66 96 Room Air 05/31/22 03:50 37 C 74 16 97/59 L 97 Room Air 05/30/22 23:30 37.2 C 84 16 127/76 97 Room Air 05/30/22 20:30 37.2 C 79 16 125/86 100 Room Air Lab Results 05/30/22 05/31/22 Range/Units 14:49 06:26 WBC 9.31 (4.8-10.8) K/ul RBC 3.26 L (3.93-5.22) M/uL Hgb 10.5 L (12.0-16.0) g/dl Hct 30.5 L (34.1-44.9) % MCV 93.6 (80.0-100.0) fL MCH 32.2 (25.0-34.0) pg MCHC 34.4 (32.0-36.0) g/dL RDW Std Deviation 43.6 (36.4-46.3) fL RDW Coeff of Lashawn 12.7 (11.5-14.5) % Plt Count 223 (130-400) K/uL MPV 11.4 (9.4-12.3) fL SARS-CoV-2, RNA, NAAT NEGATIVE (NEGATIVE) PE: General: Alert, orientedx3, NAD Abd: soft, NT, fundus firm, below Umbilicus Perineum intact, Lochia rubra minimal Ext; NT, no edema AP: 27 yo s/p , ppd# 1 VSS Afebrile doing well Continue routine care Desires d/c today All questions were answered D/C home , f/u in office Results & Data ([facility] [place]) Vital Signs (Past 12 Hours) Vital Signs Temp Pulse Resp BP Pulse Ox O2 Del Method 05/31/22 07:35 37.1 C 98 H 16 102/66 96 Room Air 05/31/22 03:50 37 C 74 16 97/59 L 97 Room Air 05/30/22 23:30 37.2 C 84 16 127/76 97 Room Air 05/30/22 20:30 37.2 C 79 16 125/86 100 Room Air
[2022-05-31] MEDS: IBUPROFEN 600 MG TAB PO PRN (07:57)
[2022-05-31] MEDS: DOCUSATE SODIUM 100 MG CAP PO SCH (07:58)
[2022-05-31] MEDS ORDERED: PRENATAL VITAMIN 1 TAB PO SCH ×3 (08:00→09:00)
[2022-05-31] MEDS: ACETAMINOPHEN 325 MG TAB PO PRN (11:30)
[2022-05-31] MEDS ORDERED: bisacodyL 5 MG TABEC PO SCH (20:00)
== END 2022-05-31 15:30 | disposition home or self-care (01) | DRG 807 ==
LOC: 4S1 13:13 → 4E2 16:30